=== PATIENT | male | born 1985 | race Caucasian/White ===

== ENCOUNTER 2017-08-05 14:59 | Emergency (ER) | payer OTHER ==
[2017-08-05] MEDS ORDERED: MORPHINE SULFATE 10 MG/ML INJ IV ONE (15:06)
[2017-08-05] MEDS ORDERED: ONDANSETRON HCL INJ/PF 4 MG/2 ML SDV IV ONE ×2 (15:06→15:17)
--- NOTE | 2017-08-05 15:07 | ER Document Report ---
ED Medical Screen (RME) - General Chief Complaint: Arm Injury Stated Complaint: ARM PAIN Time Seen by Provider: 08/05/17 15:06 - HPI Notes: 08/05/17 15:07 Deformed right arm - Related Data Allergies/Adverse Reactions: No Known Allergies Allergy (Unverified 08/05/17 15:05) Review of Systems - Review of Systems Constitutional: Other - Deformity to the right arm Physical Exam - Extremities General upper extremity: Other - Deformity right arm with laceration. Pulses sensation intact distally Course - Re-evaluation Re-evalutation: 08/05/17 15:07 I have greeted and performed a rapid initial assessment of this patient. A comprehensive ED assessment and evaluation of the patient, analysis of test results and completion of the medical decision making process will be conducted by additional ED providers.
--- NOTE | 2017-08-05 15:15 | ER Document Report ---
ED Extremity Problem, Upper - General Chief Complaint: Arm Injury Stated Complaint: ARM PAIN Time Seen by Provider: 08/05/17 15:06 Mode of Arrival: Ambulatory Information source: Patient TRAVEL OUTSIDE OF THE [place] 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, STRUCK STEEL & SOMEHOW INJURED FOREARM Exacerbated by: Movement Relieved by: Rest Similar symptoms previously: No Recently seen / treated by doctor: No - Related Data Allergies/Adverse Reactions: ibuprofen [From Motrin] Allergy (Verified 08/05/17 15:22) Past Medical History - General Information source: Patient - Social History Smoking Status: Unknown if Ever Smoked Frequency of alcohol use: Occasional Drug Abuse: None Lives with: Spouse/Significant other Family History: None Patient has suicidal ideation: No Patient has homicidal ideation: No - Past Medical History Cardiac Medical History: Reports: None Pulmonary Medical History: Reports: None EENT Medical History: Reports: None Neurological Medical History: Reports: None Endocrine Medical History: Reports: None Renal/ Medical History: Reports: None Malignancy Medical History: Reports None GI Medical History: Reports: None Musculoskeltal Medical History: Reports None Psychiatric Medical History: Reports: None Surgical Hx: Negative Review of Systems - Review of Systems Constitutional: No symptoms reported EENT: No symptoms reported Cardiovascular: No symptoms reported Respiratory: No symptoms reported Gastrointestinal: No symptoms reported Musculoskeletal: See HPI Skin: See HPI Neurological/Psychological: No symptoms reported. denies: Sensory change, Numbness Physical Exam - Vital signs Vitals: Temp Resp BP Pulse Ox 98.3 F 13 137/90 H 96 08/05/17 15:19 08/05/17 15:19 08/05/17 15:19 08/05/17 15:19 Interpretation: Hypertensive. No: Tachycardic, Tachypneic - General General appearance: Appears well, Alert In distress: None - HEENT Head: Normocephalic Eyes: Normal Conjunctiva: Normal Ears: Normal Nasal: Normal Mouth/Lips: Normal Mucous membranes: Normal - Respiratory Respiratory status: No respiratory distress - Cardiovascular Rhythm: Regular Pulses: Normal: Radial - SYMMETRICAL Normal capillary refill: Yes - Abdominal Inspection: Normal Distension: No distension - Extremities General upper extremity: No: Normal inspection - R. FOREARM (SEE BELOW) General lower extremity: Normal inspection Forearm: Laceration - LATERALLY, OVER DISTAL ULNA Hand: Normal. No: Tendon deficit - Neurological Neuro grossly intact: Yes Cognition: Normal Orientation: AAOx4 Saran Coma Scale Eye Opening: Spontaneous Saran Coma Scale Verbal: Oriented Saran Coma Scale Motor: Obeys Commands Saran Coma Scale Total: 15 Sensory: Normal - ALL 3 NERVE AREAS OF R. HAND - Psychological Associated symptoms: Normal affect, Normal mood - Skin Skin Temperature: Warm Skin Moisture: Dry Skin Color: Normal Skin Turgor: Elastic Course - Vital Signs Vital signs: Temp Pulse Resp BP Pulse Ox 98.3 F 12 118/87 H 96 08/05/17 15:19 08/05/17 17:24 08/05/17 17:24 08/05/17 17:24 - Laboratory Result Diagrams: 08/05/17 15:18 08/05/17 15:18 Laboratory results interpreted by me: 08/05/17 15:18 Sodium 135.6 L BUN 22 H - Diagnostic Test Radiology reviewed: Image reviewed, Reports reviewed Procedures - Laceration/Wound Repair Right Arm Time completed: 17:05 Wound length (cm): 2.5 Wound's Depth, Shape: Superficial, Other - PENETRATES SQ FAT LAYER OBLIQUELY, DEPTH 3 cm Laceration pre-procedure: Sterile PPE donned, Sterile drapes applied, Shur- Clens applied Anesthetic type: 1% Lidocaine w/epi Volume Anesthetic (mLs): 8 Wound explored: Contaminated, Foreign body removed - SINGLE METALLIC SHARD Irrigated w/ Saline (mLs): 120 Wound Debrided: Minimal Wound Repaired With: Sutures, [place] drain Suture Size/Type: 4:0, Nylon Number of Sutures: 2 Layer Closure?: No Post-procedure wound care: Sterile dressing applied Post-procedure NV exam normal: Yes Complications: No Adult Front & Back picture: 1 - LACERATION W/ EMBEDDED FB, SUTURED AFTER EXTRACTION OF FB. Discharge - Discharge Clinical Impression: Laceration of forearm with foreign body Qualifiers: Encounter type: initial encounter Laterality: right Qualified Code(s): S51.821A - Laceration with foreign body of right forearm, initial encounter Condition: Stable Disposition: HOME, SELF-CARE Instructions: Elevate the Injury ([facility]), Laceration Care ([facility]), Oral Narcotic Medication ([facility]), Prophylactic Antibiotic ([facility]), Tetanus Immunization Given ([facility] ) Additional Instructions: KEEP BANDAGE CLEAN, DRY, AND INTACT. MEDS DIRECTED. FOLLOW UP WITH AUGUST 07, CALL OFFICE TOMORROW FOR APPT. TIME. RETURN TO E.R. FOR RE-EVALUATION IF PROBLEMS, ANY TIME. Prescriptions: Hydrocodone/Acetaminophen [[place] 5-325 mg Tablet] 1 tab PO Q4HP PRN #14 tablet PRN Reason: For Pain Cephalexin Monohydrate [Keflex 500 mg Capsule] 500 mg PO QID #20 capsule Referrals: MILTON POLLACK MD [ACTIVE STAFF] - 08/07/17
[2017-08-05 15:29] LABS: ABSOLUTE BASOPHILS # (AUTO) 0.1 10^3/uL (0.0-0.2); ABSOLUTE EOSINOPHILS # (AUTO) 0.1 10^3/uL (0.0-0.6); ABSOLUTE LYMPHOCYTES (AUTO) 1.2 10^3/uL (0.5-4.7); ABSOLUTE MONOCYTES (AUTO) 0.6 10^3/uL (0.1-1.4); ABSOLUTE NEUT (AUTO) 3.7 10^3/uL (1.7-8.2); HEMATOCRIT 40.9 % (37.9-51.0); HEMOGLOBIN 13.9 g/dL (13.5-17.0); LYMPHOCYTES % (AUTO) 22.1 % (13-45); MEAN CORPUSCULAR HEMOGLOBIN 31.8 pg (27.0-33.4); MEAN CORPUSCULAR HGB CONC 33.9 g/dL (32.0-36.0); MEAN CORPUSCULAR VOLUME 94 fl (80-97); MONOCYTES % (AUTO) 11.1 % (3-13); PLATELET COUNT 251 10^3/uL (150-450); RED BLOOD COUNT 4.37 10^6/uL (4.35-5.55); RED CELL DISTRIBUTION WIDTH 13.7 % (11.5-14.0); SEGMENTED NEUTROPHILS % (AUTO) 64.8 % (42-78); TOTAL CELLS COUNTED % (AUTO) 100 %; WHITE BLOOD COUNT 5.7 10^3/uL (4.0-10.5)
[2017-08-05] MEDS ORDERED: CEFAZOLIN 1 GM/D5W RTU 1 GM/50 ML RTUPB IV ONE (15:37)
[2017-08-05] MEDS ORDERED: LIDOCAINE 1%/EPINEPHRINE INJ 20 ML VIAL INJ ONE (15:37)
[2017-08-05] MEDS ORDERED: DIPH/PERTUSS(ACELL)/TETANUS VAC/PF 0.5 ML SYR (>=10YO) IM ONE (15:40)
--- NOTE | 2017-08-05 15:42 | RADIOLOGY REPORT (SQ) ---
EXAM DESCRIPTION: FOREARM RIGHT COMPLETED DATE/TIME: 08/05/2017 3:27 pm REASON FOR STUDY: possible open fx COMPARISON: None. NUMBER OF VIEWS: Two views. TECHNIQUE: Two radiographic images acquired of the right forearm, including elbow and wrist in at le ast one projection. LIMITATIONS: None. FINDINGS: MINERALIZATION: Normal. BONES: No acute fracture. No worrisome bone lesions. SOFT TISSUES: A 1.3 cm opaque foreign object in the soft tissues of the distal forearm, dorsal media l aspect. Soft tissue swelling and injury are identified. OTHER: No other significant finding. IMPRESSION: 1 An opaque foreign object in the soft tissues of the distal forearm. Associated soft t issue swelling and injury. 2 No acute osseous findings. TECHNICAL DOCUMENTATION: JOB ID: [id number] [employer]- All Rights Reserved Reading location - IP/workstation name: [email or web address]
[2017-08-05 15:53] LABS: ANION GAP 9 (5-19); BLOOD UREA NITROGEN 22 mg/dL (7-20); CALCIUM 9.5 mg/dL (8.4-10.2); CARBON DIOXIDE 27 mmol/L (22-30); CHLORIDE 100 mmol/L (98-107); GLUCOSE 89 mg/dL (75-110); POTASSIUM 4.3 mmol/L (3.6-5.0); SODIUM 135.6 mmol/L (137-145)
[2017-08-05 17:35] VITALS: BP 118/87
== END 2017-08-05 17:36 | disposition home or self-care (01) ==
LOC: ER 14:59
DX: S51.821A Laceration with foreign body of right forearm, initial encounter (principal); X58.XXXA Exposure to other specified factors, initial encounter; W45.8XXA Other foreign body or object entering through skin, initial encounter; Y93.89 Activity, other specified; Y99.0 Civilian activity done for income or pay; Z88.6 Allergy status to analgesic agent
CPT/HCPCS: 99284; 90471; 96375; 96365; 36415; 85025; 80048; 73090; 90715; 12001; J0690; J3490; J2270; J2405

== ENCOUNTER 2018-02-20 11:11 | Emergency (ER) | payer OTHER ==
[2018-02-20 11:19] VITALS: BP 139/76
--- NOTE | 2018-02-20 11:32 | ER Document Report ---
ED Eye Complaint - General Chief Complaint: Eye Problem Stated Complaint: EYE PAIN Time Seen by Provider: 02/20/18 11:26 Information source: Patient Notes: History of Present Illness Time:[ ] Chief Complaint: [eye complaint ] [ ] History obtained from [patient] 33 years old male presents today with 2-day history of right eye gradual increasing intensity of redness tearing and also right nostril clear discharge. No injuries. No fever chills or other constitutional symptoms Symptoms began: [ As above] Onset: [ Gradual] Timing: [Continuous ] Quality: [Irritable, pain ] Intensity: [Mild to moderate ] Location: [ Right eye] Radiation: [none] Migration: [none] Aggravating factors: [none] Relieving factors: [none] Review of Systems: All other systems negative as reviewed. CONSTITUTIONAL No Fever. EYES As above ENT No sore throat CARDIOVASCULAR No chest pain. RESPIRATORY No SOB. GI No abdominal pain, no vomiting, no diarrhea. GENITOURINARY No dysuria. SKIN No rash. NEUROLOGIC No headache. MUSCULOSKELETAL No back pain. Physical Exam CONSTITUTIONAL Vital signs reviewed, Patient has normal respiratory rate, Well appearing, Patient appears comfortable, normal stature. HEAD Atraumatic, Normocephalic. EYES [ ][Pupils are ~ 3 mm bilaterally.] [Pupils are equal, round, and reactive to light. ]Extraocular movements are normal bilaterally. [Right eye conjunctiva is erythematous] eye redness. [No] eye lesions. [No] eye discharge. [No] subconjunctival hemorrhage. [No] icterus. [Normal visual reyes. ] Eyelids everted, [no] lesions , [no] foreign material noted. Flourescein staining - [no] uptake to suggest corneal defect. Slit lamp exam: Normal inspection. No foreign material noted. No hyphema, No WBCs seen. No cells or flare. Visual acuity charted by RN. ENT Ears normal to inspection, Nose examination normal, Mouth examination normal. NECK No jugular venous distention. RESPIRATORY CHEST Breath sounds normal, No respiratory distress. CARDIOVASCULAR RRR, No murmurs, Normal S1 S2, No rub, No gallop. ABDOMEN Abdomen is nontender, No masses, Bowel sounds normal, No distension, No peritoneal signs. BACK Inspection normal. UPPER EXTREMITY Inspection normal. LOWER EXTREMITY Inspection normal. NEURO No facial droop, speech normal, motor function normal. SKIN Skin is warm, dry, normal color. PSYCHIATRIC Normal affect. TRAVEL OUTSIDE OF THE [place] IN LAST 30 DAYS: No - HPI Notes: Dictated - Related Data Allergies/Adverse Reactions: ibuprofen [From Motrin] Allergy (Verified 02/20/18 11:14) Past Medical History - Social History Smoking Status: Current Every Day Smoker Cigarette use (# per day): No Chew tobacco use (# tins/day): No Smoking Education Provided: No Frequency of alcohol use: Rare Drug Abuse: None Lives with: Family Family History: None, Reviewed & Not Pertinent Renal/ Medical History: Denies: Hx Peritoneal Dialysis Past Surgical History: Reports: Hx Orthopedic Surgery - left elbow Review of Systems - Review of Systems Notes: Dictated Physical Exam - Vital signs Vitals: Temp Pulse Resp BP Pulse Ox 98.2 F 78 17 139/76 H 100 02/20/18 11:18 02/20/18 11:18 02/20/18 11:18 02/20/18 11:18 02/20/18 11:18 - Notes Notes: Dictated Course - Vital Signs Vital signs: Temp Pulse Resp BP Pulse Ox 98.2 F 78 17 139/76 H 100 02/20/18 11:18 02/20/18 11:18 02/20/18 11:18 02/20/18 11:18 02/20/18 11:18 Discharge - Discharge Clinical Impression: Conjunctivitis Qualifiers: Conjunctivitis type: acute Acute conjunctivitis type: bacterial Laterality: right Qualified Code(s): H10.31 - Unspecified acute conjunctivitis, right eye Rhinitis Qualifiers: Rhinitis type: allergic Allergic rhinitis trigger: unspecified Allergic rhinitis seasonality: seasonal Qualified Code(s): J30.2 - Other seasonal allergic rhinitis Condition: Fair Disposition: HOME, SELF-CARE Instructions: Conjunctivitis ([facility]) Prescriptions: Loratadine/Pseudoephedrine [Claritin-D 12 Hour Tablet] 1 each PO BID PRN #30 tab.er.12h PRN Reason: Tobramycin Sulfate [Tobrex 0.3% Oph Soln 5 Ml] 1 drop QID #1 bottle Referrals: CARYL MEEK PA [Primary Care Provider] - Follow up as needed
== END 2018-02-20 11:35 | disposition home or self-care (01) ==
LOC: ER 11:11
DX: H10.31 Unspecified acute conjunctivitis, right eye (principal); J30.2 Other seasonal allergic rhinitis; F17.200 Nicotine dependence, unspecified, uncomplicated; Z88.6 Allergy status to analgesic agent
CPT/HCPCS: 99283